=== PATIENT | male | born 2000 | race African-American/Black ===

== ENCOUNTER 2021-05-14 06:12 | Emergency (ER) | payer BC ==
--- NOTE | 2021-05-14 09:02 | RAD REPORT ---
EXAM DESCRIPTION: RAD - Wrist Right 3 View - 05/14/2021 6:53 am CLINICAL HISTORY: PAIN Pain COMPARISON: No comparisons FINDINGS: No fracture or dislocation seen. No foreign body or other soft tissue abnormality. IMPRESSION: Negative examination.
--- NOTE | 2021-05-15 17:12 | EDPHYS ---
Physician Documentation [facility] Name: Jose Barrera Age: 20 yrs Sex: Male : 2000 Arrival Date: 05/14/2021 Time: 06:16 Bed 12 Private MD: Augustine Sullivan W ED Physician Nirav Friedman HPI: 05/14 07:40 This 20 yrs old Black Male presents to ER via Ambulatory with complaints of Wrist Pain. kb 07:40 The patient or guardian reports decreased range of motion, pain. The complaints affect kb the right wrist diffusely. Context: The problem was sustained at home, resulted from a repetitive motion, playing [employer]. Onset: The symptoms/episode began/occurred last week. Modifying factors: The symptoms are alleviated by nothing, the symptoms are aggravated by nothing. Associated signs and symptoms: The patient has no apparent associated signs or symptoms. The patient has not experienced similar symptoms in the past. The patient has not recently seen a physician. Pt reports right wrist pain that started last week but was mild. Played [employer] yesterday woke up with increased pain today. Denies injury. 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 - Social history:: Smoking status: Patient denies any tobacco usage or history of. ROS: 07:39 Constitutional: Negative for fever, chills, and weight loss. kb 07:39 MS/extremity: Positive for pain, of the right wrist. 07:39 All other systems are negative. Exam: 07:39 Constitutional: This is a well developed, well nourished patient who is awake, alert, kb and in no acute distress. Head/Face: Normocephalic, atraumatic. ENT: Moist Mucous membranes Respiratory: Respirations even and unlabored. No increased work of breathing, no retractions or nasal flaring. Skin: Warm, dry with normal turgor. Normal color. Neuro: Awake and alert, GCS 15, oriented to person, place, time, and situation. Moves all extremities. Normal gait. Psych: Awake, alert, with orientation to person, place and time. Behavior, mood, and affect are within normal limits. 07:39 Musculoskeletal/extremity: Extremities: grossly normal except: noted in the right wrist: decreased ROM, pain, ROM: limited active range of motion due to pain, in the right wrist, Circulation is intact in all extremities. Sensation intact. Vital Signs: 06:34 BP 137 / 88; Pulse 67; Resp 16 S; Temp 97.6(TE); Pulse Ox 99% on R/A; Weight 63.5 kg bb (R); Height 5 ft. 10 in. (177.80 cm) (R); Pain 8/10; 06:34 Body Mass Index 20.09 (63.50 kg, 177.80 cm) bb MDM: 06:35 Patient medically screened. kb 07:39 Data reviewed: vital signs, nurses notes. Data interpreted: Pulse oximetry: on room air kb is 99 %. Interpretation: normal. Counseling: I had a detailed discussion with the patient and/or guardian regarding: the historical points, exam findings, and any diagnostic results supporting the discharge/admit diagnosis, radiology results, the need for outpatient follow up, a orthopedic surgeon, to return to the emergency department if symptoms worsen or persist or if there are any questions or concerns that arise at home. 07:44 Test interpretation: by ED physician or midlevel provider: plain radiologic studies, kb negative. 05/14 06:35 Order name: Wrist Right 3 View XRAY 05/14 07:42 Order name: Anshu wrap-joint; Complete Time: 07:55 kb Administered Medications: No medications were administered Disposition Summary: 05/14/21 07:42 Discharge Ordered Location: Home kb Condition: Stable kb Diagnosis - Pain in right wrist kb Followup: kb - With: Emergency Department - When: As needed - Reason: Worsening of condition Followup: kb - With: Private Physician - When: 2 - 3 days - Reason: Recheck today's complaints, Continuance of care, Re-evaluation by your physician Discharge Instructions: - Discharge Summary Sheet kb - Wrist Pain, Adult, [id number] kb Forms: - Medication Reconciliation Form kb - Thank You Letter kb - Antibiotic Education kb - Prescription Opioid Use kb Signatures: Dispatcher [employer] EDItalia Keenan, PHOTOCOPYING EQUIPMENT REPAIRER-C LINH-Ckb Hernandez, Alexandra, RN RN bb
--- NOTE | 2021-05-15 17:12 | ER ---
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 Coronavirus screen: At this time, the client does not indicate any symptoms associated with coronavirus-19. Ebola Screen: No symptoms or risks identified at this time. Initial Sepsis Screen: Does the patient meet any 2 criteria? No. Patient's initial sepsis screen is negative. Does the patient have a suspected source of infection? No. Patient's initial sepsis screen is negative. Risk Assessment: Do you want to hurt yourself or someone else? Patient reports no desire to harm self or others. Onset of symptoms was May 13, 2021. 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 - Social history:: Smoking status: Patient denies any tobacco usage or history of. Screenin:36 Abuse screen: Denies threats or abuse. Nutritional screening: No deficits noted. aa5 Tuberculosis screening: No symptoms or risk factors identified. Fall Risk None identified. Assessment: 07:36 General: Appears comfortable, Behavior is calm, cooperative. Pain: Complains of pain in aa5 right wrist. Neuro: Level of Consciousness is awake, alert, obeys commands, Oriented to person, place, time, situation. Cardiovascular: Patient's skin is warm and dry. Respiratory: Airway is patent Respiratory effort is even, unlabored, Respiratory pattern is regular, symmetrical. GI: No signs and/or symptoms were reported involving the gastrointestinal system. : No signs and/or symptoms were reported regarding the genitourinary system. EENT: No signs and/or symptoms were reported regarding the EENT system. Derm: Skin is dry, Skin is normal, Skin temperature is warm. Musculoskeletal: Range of motion: intact in all extremities. 07:54 Neuro: Level of Consciousness is awake, alert, obeys commands, Oriented to person, aa5 place, time, situation. Respiratory: Airway is patent Respiratory effort is even, unlabored, Respiratory pattern is regular, symmetrical. Derm: Skin is dry, Skin is normal, Skin temperature is warm. 07:55 Reassessment: Anshu wrap applied to right wrist . aa5 Vital Signs: 06:34 BP 137 / 88; Pulse 67; Resp 16 S; Temp 97.6(TE); Pulse Ox 99% on R/A; Weight 63.5 kg bb (R); Height 5 ft. 10 in. (177.80 cm) (R); Pain 8/10; 06:34 Body Mass Index 20.09 (63.50 kg, 177.80 cm) bb ED Course: 06:16 Patient arrived in ED. ds1 06:16 Augustine Sullivan MD is Private Physician. ds1 06:22 Italia Vizcarra FNP-C [facility]. kb 06:22 Nirav Friedman MD is Attending Physician. kb 06:36 Triage completed. bb 06:36 Arm band placed on Patient placed in waiting room, Patient notified of wait time. X-ray bb ordered. Family accompanied patient. 06:53 Wrist Right 3 View XRAY In Process Unspecified. EDMS 07:36 Patient has correct armband on for positive identification. Adult w/ patient. aa5 07:42 Maryse Slater, RN is Primary Nurse. aa5 07:55 No provider procedures requiring assistance completed. Patient did not have IV access aa5 during this emergency room visit. Administered Medications: No medications were administered Outcome: 07:42 Discharge ordered by MD. kb 07:54 Discharged to home ambulatory, with family. aa5 07:54 Condition: stable 07:54 Discharge instructions given to patient, Instructed on discharge instructions, follow up and referral plans. Demonstrated understanding of instructions, follow-up care. 07:56 Patient left the ED. aa5 Signatures: Dispatcher [employer] EDMS Italia Vizcarra FNP-C FNP-Nu [place] ds1 Alexandra Hernandez RN RN bb Maryse Slater, RN RN aa5
[2021-05-16 04:31] VITALS: BP 137/88; TEMP 97.6; O2SAT 99
== END 2021-05-14 07:56 | disposition home or self-care (01) ==
LOC: ER 06:12
DX: M25.531 Pain in right wrist (principal)

== ENCOUNTER 2024-10-02 05:37 | Emergency (ER) | payer BC, OTHER, SELFPAY ==
--- NOTE | 2024-10-02 08:29 | RAD REPORT ---
EXAMINATION: TWO VIEW CHEST XR CLINICAL INDICATION: CHEST PAIN TECHNIQUE: 2 views of the chest was performed. COMPARISON: 06/22/2012 FINDINGS: The lungs are well inflated and clear. The heart is normal in size. No displaced fractures evident. IMPRESSION: No acute or significant abnormalities.
[2024-10-02 08:41] LABS: Absolute Eosinophils 0.4 K/uL (0-0.5); Absolute Monocytes 0.8 K/uL (0.1-1.3); Basophils % 0.5 % (0-1.3); Eosinophils % 9.6 % (0-4.4); Hematocrit 41.5 % (39.6-49.0); Hemoglobin 13.5 g/dL (13.6-17.9); Lymphocytes % 23.4 % (15.3-44.8); MCH 28.8 pg (27.0-35.0); MCHC 32.4 g/dL (32.0-36.0); MCV 88.7 fL (80-100); MPV 10.1 fL (7.6-11.3); Monocytes % 18.8 % (3.3-12.3); Neutrophils % 47.7 % (41.7-73.7); Platelets 173 thou/uL (152-406); RBC Red Blood Cell Count 4.68 M/uL (4.33-5.43); Red Cell Distribution Width 13.4 % (12.1-15.2)
[2024-10-02 08:56] LABS: Anion Gap 5.6 mEq/L (5.0-15.0); Potassium 3.6 mEq/L (3.5-5.1); Troponin High Sensitivity 3.3 pg/mL (<58.9)
--- NOTE | 2024-10-02 09:28 | EDPHYS ---
Physician Documentation [facility] Name: Jose Barrera Age: 24 yrs Sex: Male : 2000 Arrival Date: 10/02/2024 Time: 05:37 Bed 7 Private MD: ED Physician Adiel Ordaz HPI: 10/02 07:23 This 24 yrs old Black Male presents to ER via Ambulatory with complaints of Chest Pain ms3 - x4days. 07:23 Jose Barrera, a 24-year-old male, presents to the emergency department with chest pain ms3 that has been ongoing for four days. He reports coughing up mucus starting Friday, preceded by a sore throat on Friday and Friday. On Friday, he experienced significant mucus production, followed by a runny nose and mucus sensation in his chest on Friday. He describes the chest pain as a 7 out of 10 in severity and states it is not relieved or worsened by any specific factors. He has no history of similar discomfort in his chest before this episode.. Historical: - Allergies: 06:12 No Known Allergies; vc1 - Home Meds: 06:12 None [Active]; vc1 - PMHx: 06:12 aspergers; vc1 - PSHx: 06:12 hernia repair; vc1 - Immunization history:: Client reports receiving the 2nd dose of the Covid vaccine, Flu vaccine is not up to date. - Infectious Disease History:: Denies. - Social history:: Smoking status: Patient denies any tobacco usage or history of. ROS: 07:23 Constitutional: Negative for fever, and chills. Abdomen/GI: Negative for abdominal ms3 pain, nausea, vomiting, diarrhea, and constipation, 07:23 Cardiovascular: Positive for chest pain, 07:23 Respiratory: Positive for cough, Exam: 06:33 ECG was reviewed by the Attending Physician. ms3 07:23 Constitutional: This is a well developed, well nourished patient who is awake, alert, ms3 and in no acute distress. Cardiovascular: Regular rate and rhythm with a normal S1 and S2. No gallops, murmurs, or rubs. Normal PMI, no JVD. No pulse deficits. Respiratory: Lungs have equal breath sounds bilaterally, clear to auscultation and percussion. No rales, rhonchi or wheezes noted. No increased work of breathing, no retractions or nasal flaring. Abdomen/GI: Soft, non-tender, with normal bowel sounds. No distension or tympany. No guarding or rebound. No evidence of tenderness throughout. Skin: Warm, dry with normal turgor. Normal color with no rashes, no lesions, and no evidence of cellulitis. Vital Signs: 06:10 BP 122 / 96; Pulse 94; Resp 18; Temp 99; Pulse Ox 96% ; Weight 63.5 kg; Height 5 ft. 9 vc1 in. ; Pain 7/10; 06:46 BP 124 / 92; Pulse 104; Resp 14; Pulse Ox 96% on R/A; br2 07:30 BP 130 / 92; Pulse 99; Resp 17; Pulse Ox 96% ; bp 09:34 BP 118 / 84; Pulse 90; Resp 15; Pulse Ox 99% ; ko1 06:10 Body Mass Index 20.67 (63.50 kg, 175.26 cm) vc1 06:10 Pain Scale: Adult vc1 MDM: 06:18 Medical Screening Exam initiated ms3 07:23 Differential diagnosis: abnormal EKG, acute myocardial infarction, chest wall pain. ms3 07:25 Transition of care: After a detail discussion of the patient's case, care is ms3 transferred to Adiel Ordaz MD. 09:25 Data reviewed: vital signs, lab test result(s), EKG, radiologic studies, plain films. bo1 09:26 ED course: Pt being ill since Friday, still coughing and at times wheezing. Negative bo1 studies. Will manage as OP. Discussed with pt, sister and father in the room. Results provided. 10/02 08:10 Order name: Basic Metabolic Panel; Complete Time: 09:15 bo1 10/02 08:10 Order name: CBC with Diff; Complete Time: 09:15 bo1 10/02 08:10 Order name: Troponin HS; Complete Time: 09:15 bo1 10/02 06:53 Order name: Chest Pa And Lat (2 Views) XRAY; Complete Time: 08:39 ms3 10/02 05:58 Order name: EKG; Complete Time: 05:59 ms3 10/02 08:10 Order name: Labs collected and sent; Complete Time: 08:28 bo1 EC:33 Rate is 100 beats/min. Rhythm is regular. QRS [place] is Normal. AR interval is normal. ms3 QRS interval is normal. Clinical impression: Sinus tachycardia. Interpreted by me. Reviewed by me. Administered Medications: No medications were administered Disposition Summary: 10/02/24 09:28 Discharge Ordered Notes: Location: Home bo1 Problem: new bo1 Symptoms: are unchanged bo1 Condition: Stable bo1 Diagnosis - Cough bo1 - Acute bronchitis due to other specified organism bo1 - Chest pain, unspecified bo1 Followup: bo1 - With: Private Physician - When: Upon discharge from the Emergency Department - Reason: Recheck today's complaints, Continuance of care Discharge Instructions: - Discharge Summary Sheet bo1 - Acute Bronchitis, Adult bo1 Forms: - Medication Reconciliation Form bo1 - Antibiotic Education bo1 - Prescription Opioid Use bo1 - Patient Portal Instructions bo1 - Leadership Thank You Letter bo1 Prescriptions: - azithromycin 250 mg Oral tablet - take 1 dose pack ORAL route as directed on dose pack For 250 mg dose pack: take bo1 500 mg today (day 1), then 250 mg for 4 days (days 2-5) - ZPAK; 1 Pack; Refills: 0, Product Selection Permitted - Tessalon Perles 100 mg Oral Capsule - take 1 capsule ORAL route every 8 hours As needed; 15 capsule; Refills: 0, bo1 Product Selection Permitted Signatures: Dispatcher [employer] EDMS Marcell Guevara DO DO ms3 Celeste Mccormack, RN RN vc1 Adiel Ordaz MD MD bo1 Corrections: (The following items were deleted from the chart) 06:13 06:12 PMHx: asburgers syndrome; vc1 vc1 06:53 06:53 Chest Pa And Lat (2 Views)+RAD.RAD.BRZ ordered. EDMS EDMS
--- NOTE | 2024-10-02 09:28 | ER ---
Nurse's Notes [facility] Name: Jose Barrera Age: 24 yrs Sex: Male : 2000 Arrival Date: 10/02/2024 Time: 05:37 Bed 7 Private MD: Diagnosis: Cough;Acute bronchitis due to other specified organism;Chest pain, unspecified Presentation: 10/02 06:10 Chief complaint: Patient states: sore throat, mucus, can't sleep, chest pain with deep vc1 breath, SOB. Coronavirus screen: Client denies travel out of the [place] in the last 14 days. cough unrelated to allergies, sore throat, Client presents with at least one sign or symptom that may indicate coronavirus-19. Ebola Screen: Patient negative for fever greater than or equal to 101.5 degrees Fahrenheit, and additional compatible Ebola Virus Disease symptoms Patient denies exposure to infectious person. Patient denies travel to an Ebola-affected area in the 21 days before illness onset. No symptoms or risks identified at this time. Initial Sepsis Screen: Does the patient meet any 2 criteria? No. Patient's initial sepsis screen is negative. Does the patient have a suspected source of infection? No. Patient's initial sepsis screen is negative. Risk Assessment: Do you want to hurt yourself or someone else? Patient reports no desire to harm self or others. Onset of symptoms was October 01, 2024. 06:10 Method Of Arrival: Ambulatory vc1 06:10 Acuity: ELIS 4 vc1 Triage Assessment: 06:13 General: Appears in no apparent distress. ill, slender, well groomed, well developed, vc1 well nourished, Behavior is calm, cooperative, appropriate for age. Pain: Complains of pain in throat Pain does not radiate. Pain currently is 7 out of 10 on a pain scale. EENT: No deficits noted. No signs and/or symptoms were reported regarding the EENT system. Neuro: Level of Consciousness is awake, alert, obeys commands, Oriented to person, place, time, situation, Appropriate for age. Cardiovascular: Capillary refill < 3 seconds Patient's skin is warm and dry. Respiratory: Reports shortness of breath Airway is patent Respiratory effort is even, unlabored, Respiratory pattern is regular, symmetrical. GI: No deficits noted. No signs and/or symptoms were reported involving the gastrointestinal system. : No deficits noted. No signs and/or symptoms were reported regarding the genitourinary system. Derm: Skin is intact, is healthy with good turgor, Skin is dry, Skin is normal, Skin temperature is warm. Musculoskeletal: Circulation, motion, and sensation intact. Range of motion: intact in all extremities. Historical: - Allergies: 06:12 No Known Allergies; vc1 - Home Meds: 06:12 None [Active]; vc1 - PMHx: 06:12 aspergers; vc1 - PSHx: 06:12 hernia repair; vc1 - Immunization history:: Client reports receiving the 2nd dose of the Covid vaccine, Flu vaccine is not up to date. - Infectious Disease History:: Denies. - Social history:: Smoking status: Patient denies any tobacco usage or history of. Screenin:15 [facility] ED Fall Risk Assessment (Adult) History of falling in the last 3 months, vc1 including since admission No falls in past 3 months (0 pts) Confusion or Disorientation No (0 pts) Intoxicated or Sedated No (0 pts) Impaired Gait No (0 pts) Mobility Assist Device Used No (0 pt) Altered Elimination No (0 pt) Score/Fall Risk Level 0 - 2 = Low Risk Oriented to surroundings, Maintained a safe environment, Educated pt \T\ family on fall prevention, incl call for assistance when getting out of bed. Abuse screen: Denies threats or abuse. Nutritional screening: No deficits noted. Tuberculosis screening: No symptoms or risk factors identified. Assessment: 07:00 Reassessment: Patient appears in no apparent distress at this time. Patient is alert, bp oriented x 3, equal unlabored respirations, skin warm/dry/pink. General: Appears in no apparent distress. comfortable. 09:34 Pain: Pain began gradually. ko1 Vital Signs: 06:10 BP 122 / 96; Pulse 94; Resp 18; Temp 99; Pulse Ox 96% ; Weight 63.5 kg; Height 5 ft. 9 vc1 in. ; Pain 7/10; 06:46 BP 124 / 92; Pulse 104; Resp 14; Pulse Ox 96% on R/A; br2 07:30 BP 130 / 92; Pulse 99; Resp 17; Pulse Ox 96% ; bp 09:34 BP 118 / 84; Pulse 90; Resp 15; Pulse Ox 99% ; ko1 06:10 Body Mass Index 20.67 (63.50 kg, 175.26 cm) vc1 06:10 Pain Scale: Adult vc1 ED Course: 05:41 Patient arrived in ED. ra3 05:43 Marcell Guevara DO is Attending Physician. ms3 06:11 Triage completed. vc1 06:13 Arm band placed on right wrist. vc1 06:15 Patient has correct armband on for positive identification. Bed in low position. Call vc1 light in reach. Pulse ox on. NIBP on. 06:34 EKG done, by ED staff, reviewed by Marcell Guevara DO. ay 07:26 Attending Physician role handed off by Marcell Guevara DO ms3 07:26 Adiel Ordaz MD is Attending Physician. ms3 07:30 Kip Coppola, GUERDA is Primary Nurse. bp 07:30 No provider procedures requiring assistance completed. Patient maintains SpO2 bp saturation greater than 95% on room air. 08:26 Chest Pa And Lat (2 Views) XRAY In Process Unspecified. EDMS 08:28 Initial lab(s) drawn, by nv, sent to lab. Inserted saline lock: 20 gauge in right bp antecubital area, using aseptic technique. Blood collected. Flushed with 10 mL NS. 09:34 Provided Education on: meds. ko1 09:34 IV discontinued, intact, bleeding controlled, No redness/swelling at site. Pressure ko1 dressing applied. Administered Medications: No medications were administered Medication: 06:15 VIS not applicable for this client. vc1 Outcome: 09:28 Discharge ordered by . bo1 09:34 Discharged to home ambulatory, with family, ko1 09:34 Condition: stable 09:34 Discharge instructions given to patient, family, Instructed on discharge instructions, follow up and referral plans. medication usage, Demonstrated understanding of instructions, follow-up care, medications, Prescriptions given X 2, 09:35 Patient left the ED. ko1 Signatures: Dispatcher [employer] EDMS Kip Coppola, RN GUERDA bp Marcell Guevara DO DO ms3 Celeste Mccormack RN RN vc1 Kellie Torrez RN RN ko1 Kourtney Francis ra3 Adiel Ordaz MD MD bo1 Socorro Castro RN RN br2 Jocelyn Morillo RN GUERDA max Corrections: (The following items were deleted from the chart) 06:13 06:12 PMHx: asburgers syndrome; vc1 vc1 06:38 06:15 BP 123 / 85; Pulse 84bpm; Resp 18bpm; Spontaneous; Pulse Ox 97% RA; ay ay
[2024-10-02 09:44] VITALS: TEMP 99
[2024-10-02 09:49] VITALS: BP 118/84; O2SAT 99
== END 2024-10-02 09:35 | disposition home or self-care (01) ==
LOC: ER 05:37
DX: J20.8 Acute bronchitis due to other specified organisms (principal); R07.9 Chest pain, unspecified
CPT/HCPCS: 36415; 71046; 80048; 84484; 85025; 99284